=== PATIENT | female | born 2005 | race Caucasian/White ===

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

== ENCOUNTER 2024-01-15 01:12 | Emergency (ER) | payer MEDICAID, OTHER ==
[~2024-01-15] VITALS: Ht 160 cm; Wt 61.0 kg
[2024-01-15 01:21] VITALS: TEMP 97.9; O2SAT 98
[2024-01-15] MEDS ORDERED: ONDANSETRON HCL 4MG/2ML INJ IV ONE (02:00)
[2024-01-15] MEDS ORDERED: FAMOTIDINE 20MG/2ML VIAL IV ONE (02:00)
[2024-01-15 02:04] LABS: CLARITY URINE CLEAR (CLEAR); COLOR URINE YELLOW (YELLOW); GLUCOSE URINE NEGATIVE (NEGATIVE); KETONES URINE 1+ (NEGATIVE); LEUKOCYTE ESTERASE URINE 1+ (NEGATIVE); NITRITE URINE NEGATIVE (NEGATIVE); OCCULT BLOOD URINE 2+ (NEGATIVE); PH URINE 7.5 (4.5-8.0); PROTEIN URINE NEGATIVE (NEGATIVE); SPECIFIC GRAVITY URINE 1.019 (1.005-1.030)
[2024-01-15 02:16] LABS: BASOPHILS % 0.6 % (0.0-2.0); EOSINOPHILS % 1.3 % (0.0-5.0); HEMATOCRIT. 32.1 % (36.0-48.0); HEMOGLOBIN. 10.4 g/dL (12.0-16.0); LYMPHOCYTES % 11.8 % (20.0-50.0); MEAN CORPUSCULAR HEMOGLOBIN 26.7 pg (28.0-32.0); MEAN CORPUSCULAR HGB CONC 32.4 g/dL (31.0-37.0); MEAN CORPUSCULAR VOLUME 82.4 fL (81.0-99.0); MEAN PLATELET VOLUME 9.5 fl (7.4-10.4); NEUTROPHILS % 79.3 % (40.0-76.0); PLATELET 175 x1000/uL (130-400); RED BLOOD CELL COUNT 3.89 mill/uL (4.2-5.4); RED CELL DISTRIBUTION WIDTH 18.7 % (11.6-14.6)
[2024-01-15 02:17] LABS: CHLORIDE 101 mEq/L (98-107); POTASSIUM 3.6 mEq/L (3.5-5.1); SODIUM 136 mEq/L (136-145)
[2024-01-15 02:18] LABS: CARBON DIOXIDE 26 mEq/L (21-32)
[2024-01-15 02:19] LABS: CALCIUM 8.6 mg/dL (8.7-10.4)
[2024-01-15 02:23] LABS: CREATININE 0.7 mg/dL (0.6-1.0); GLUCOSE 94 mg/dL (70-105)
[2024-01-15 02:24] LABS: UREA NITROGEN BLOOD 7 mg/dL (9-23)
[2024-01-15 02:25] LABS: ALANINE AMINOTRANSFERASE 8 IU/L (10-49); ALBUMIN 3.8 g/dL (3.2-4.8); ASPARTATE AMINOTRANSFERASE 19 IU/L (<34)
[2024-01-15 02:26] LABS: BILIRUBIN DIRECT 0.2 mg/dL (<=3.0); BILIRUBIN TOTAL 0.6 mg/dL (0.1-1.0); PROTEIN TOTAL 6.5 g/dL (6.0-8.3)
[2024-01-15 02:44] LABS: HCG SCREEN NEGATIVE
[2024-01-15] MEDS: ONDANSETRON HCL 4MG/2ML INJ IV NR (03:27)
[2024-01-15] MEDS: KETOROLAC 30MG/ML VIAL IV NR (03:27)
[2024-01-15] MEDS: FAMOTIDINE 20MG/2ML VIAL IV NR (03:28)
[2024-01-15 03:48] VITALS: BP 109/57; PULSE 69; RESP 18
[2024-01-15 04:46] LABS: SQUAMOUS EPITHELIAL CELL URINE 1+ /lpf (RARE/1+)
[2024-01-15 04:48] LABS: RBC URINE 0-2 /hpf (0-2)
[2024-01-15 04:49] LABS: BACTERIA URINE TRACE
== END 2024-01-15 03:49 | disposition home or self-care (01) ==
LOC: ER 01:12
DX: R10.11 Right upper quadrant pain (principal)
CPT/HCPCS: 80076; 80048; 81003; 84703; 83605; 83690; 85025; 36415; 76705; 96374; 96375; 99285; J3490; J1885; J2405; Z7610